=== PATIENT | female | born 1945 | race Caucasian/White ===

== ENCOUNTER 2016-10-21 12:40 | Emergency (ER) | payer MEDICARE, OTHER ==
[~2016-10-21] VITALS: Ht 162.6 cm; Wt 100.3 kg
[~2016-10-21 12:40] MED LIST: /ESOM40CA; /ESOM40CA PO; /IPRAINH INH; /WARF25TA OR; /WARF25TA PO; /WARF3TA OR; /WARF5TA PO; ALLE25CA OR; ASPI81TA3; ASTELIN INH; BENTYL PO; CALCCHW12 PO; CIPR25SS OR; CITRACAL PO; CLON1TAB OR; COMPAZINE OR; CORT10TA; CORT5TAB2; DARV100T; DARV100T PO; EPINEPHRINE SUBQ; FLAG500T OR; FLEXERIL OR; FLEXERIL PO; GLYB2.5T6 PO; HYDR25TA6; HYDR4TAB OR; HYDROCORTISONE; HYDRPOW14 PO; LACTASE OR; LEVO100T7; LEVO75TA2 PO; LIPI20TA OR; LISI5TAB; LOPR50TA; MAALSUS OR; MAXALT; METO25TA2 OR; MIDODRINE PO; MILKSUS; MS C30TA2 OR; PERC5TAB8 OR; PERC7.5T8 OR; PHEN 25 PO; PREG50CA; PROLIA IV; RANI300T OR; RESTASIS OU; ROSU10TA; ROSU10TA PO; SENO8.6T5 OR; TOPI50TA PO; ULTRTA PO; VERA120T; VICO5TAB PO; VITAMIN B 12 PO; VITAMIN D PO; WELCHOL PO; XANA0.5T PO; XANA1TAB2
[2016-10-21] MEDS ORDERED: WARF-23 PO (13:17)
[2016-10-21] MEDS ORDERED: DULO30CA PO (13:17)
[2016-10-21] MEDS ORDERED: CARV12.5 PO (13:17)
[2016-10-21] MEDS ORDERED: GABA-282 PO (13:17)
[2016-10-21] MEDS ORDERED: Atarax PO (13:17)
[2016-10-21] MEDS ORDERED: BACT2CRE TOP (13:17)
[2016-10-21] MEDS ORDERED: HYDR-3716 PO (13:17)
[2016-10-21] MEDS ORDERED: FLUT11IN INH (13:17)
[2016-10-21] MEDS ORDERED: SERO1TAB PO (13:21)
[2016-10-21] MEDS ORDERED: MIRA3350 PO (13:27)
[2016-10-21] MEDS ORDERED: GAVISUS PO (13:27)
[2016-10-21] MEDS ORDERED: ZOFR8TAB SL (13:27)
[2016-10-21] MEDS ORDERED: NS 1,000 ML IV SCH (14:20)
[2016-10-21] MEDS ORDERED: ONDANSETRON 4MG/2ML VIAL (J2405) IV ONE (14:30)
--- NOTE | 2016-10-21 15:11 | REP ---
Clinical: Abdominal pain. Technique: Upright view of the chest with supine and upright views of the abdomen and pelvis. Findings: Frontal view of the chest cannot exclude trace basilar atelectasis. No free air below the diaphragm to suspect pneumoperitoneum. Supine and upright views of the abdomen and pelvis demonstrate nonspecific bowel gas pattern. IVC filter and evidence for prior cholecystectomy as well as bowel surgery in the pelvis noted. Skeletal structures normal for age. Impression: Cannot exclude trace basilar atelectasis. Nonspecific bowel gas pattern. Signed by Sohail Puente MD 10/21/2016 03:02 P
[2016-10-21] MEDS ORDERED: KETOROLAC 30 MG/ML VIAL (J1885) IV ONE (16:15)
[2016-10-21 17:11] LABS: BASO % 0.9 % (0.0-1.0); EOS # 0.2 K/mm3 (0.0-0.50); EOS % 3.7 % (0.0-3.0); LARGE UNSTAINED CELL # 0.2 K/mm3 (0.0-0.4); LARGE UNSTAINED CELL % 2.7 % (0.0-4.0); LYMPH # 2.1 K/mm3 (1.5-4.5); LYMPH % 35.6 % (24.0-44.0); MEAN CORPUSCULAR HGB CONC 32.4 g/dl (32.0-36.5); MEAN CORPUSCULAR VOLUME 92.6 fl (80.0-96.0); MONO # 0.4 K/mm3 (0.0-0.8); MONO % 6.8 % (0.0-5.0); NEUTROPHILS % 50.3 % (36.0-66.0); PLATELET COUNT, AUTOMATED 227 k/mm3 (150-450); RED CELL DISTRIBUTION WIDTH 12.9 % (11.5-14.5); WHITE BLOOD COUNT 5.9 K/mm3 (4.0-10.0)
[2016-10-21 17:17] LABS: ALBUMIN 3.5 GM/DL (3.2-5.2); ALBUMIN/GLOBULIN RATIO 1.06 (1.00-1.93); ALKALINE PHOSPHATASE 137 U/L (45-117); ALT/SGPT 30 U/L (12-78); ANION GAP 11 MEQ/L (8-16); AST/SGOT 21 U/L (15-37); BILIRUBIN,DIRECT < 0.1 MG/DL (0.0-0.2); BILIRUBIN,TOTAL 0.4 MG/DL (0.2-1.0); BLOOD UREA NITROGEN 19 MG/DL (7-18); CARBON DIOXIDE LEVEL 27 MEQ/L (21-32); CHLORIDE LEVEL 103 MEQ/L (98-107); GLOMERULAR FILTRATION RATE > 60.0 (>39); GLUCOSE, FASTING 159 MG/DL (83-110); POTASSIUM SERUM 4.1 MEQ/L (3.5-5.1); SODIUM LEVEL 141 MEQ/L (136-145); TOTAL PROTEIN 6.8 GM/DL (6.4-8.2)
[2016-10-21] MEDS ORDERED: MACR100C43 PO (17:20)
[2016-10-21] MEDS ORDERED: MAGNESIUM CITRATE 300 ML BTL PO ONE (17:30)
[2016-10-21 17:32] VITALS: BP 137/66
[2016-10-22] MEDS ORDERED: SODIUM CHLORIDE 0.9% INJ 10 ML SYR IV SCH ×2 (09:00)
== END 2016-10-21 18:06 | disposition home or self-care (01) ==
LOC: M ED 12:40
DX: N39.0 Urinary tract infection, site not specified (principal); K59.00 Constipation, unspecified; I11.9 Hypertensive heart disease without heart failure; E11.9 Type 2 diabetes mellitus without complications; E07.9 Disorder of thyroid, unspecified; Z79.899 Other long term (current) drug therapy; Z79.01 Long term (current) use of anticoagulants; Z79.51 Long term (current) use of inhaled steroids; Z91.041 Radiographic dye allergy status; Z88.8 Allergy status to other drugs, medicaments and biological substances; Z88.5 Allergy status to narcotic agent; Z88.7 Allergy status to serum and vaccine; Z91.040 Latex allergy status; Z91.048 Other nonmedicinal substance allergy status; Z88.2 Allergy status to sulfonamides; Z88.1 Allergy status to other antibiotic agents
CPT/HCPCS: 36415; 74022; 80048; 80076; 81001; 83690; 85025; 87088; 87186; 96361; 96374; 96375; 99283; J1885; J2405

== ENCOUNTER 2016-11-30 15:56 | Emergency (ER) | payer MEDICARE, OTHER ==
[~2016-11-30] VITALS: Ht 162.6 cm; Wt 100.0 kg
[~2016-11-30 15:56] MED LIST changes: +Atarax PO; +BACT2CRE TOP; +CARV12.5 PO; +DULO30CA PO; +FLUT11IN INH; +GABA-282 PO; +GAVISUS PO; +HYDR-3716 PO; +MACR100C43 PO; +MIRA3350 PO; +SERO1TAB PO; +WARF-23 PO; +ZOFR8TAB SL
[2016-11-30 15:57] VITALS: BP 122/62
[2016-11-30] MEDS ORDERED: SODIUM CHLORIDE 0.9% INJ 10 ML SYR IV ONE (17:45)
== END 2016-11-30 18:20 | disposition home or self-care (01) ==
LOC: M ED 15:56
DX: Z45.2 Encounter for adjustment and management of vascular access device (principal); T82.9XXA Unspecified complication of cardiac and vascular prosthetic device, implant and graft, initial encounter; Y92.9 Unspecified place or not applicable; Y93.9 Activity, unspecified; I25.10 Atherosclerotic heart disease of native coronary artery without angina pectoris; E11.9 Type 2 diabetes mellitus without complications; J45.909 Unspecified asthma, uncomplicated; Z86.718 Personal history of other venous thrombosis and embolism; K58.9 Irritable bowel syndrome, unspecified; F41.9 Anxiety disorder, unspecified; F32.9 Major depressive disorder, single episode, unspecified; Z90.49 Acquired absence of other specified parts of digestive tract; Z79.899 Other long term (current) drug therapy; Z79.01 Long term (current) use of anticoagulants; Z88.8 Allergy status to other drugs, medicaments and biological substances; Z88.2 Allergy status to sulfonamides; Z88.1 Allergy status to other antibiotic agents; Z91.041 Radiographic dye allergy status; Z91.040 Latex allergy status; Z88.6 Allergy status to analgesic agent; Z88.5 Allergy status to narcotic agent; Z88.7 Allergy status to serum and vaccine

== ENCOUNTER 2016-12-14 09:48 | Emergency (ER) | payer MEDICARE, OTHER ==
[~2016-12-14] VITALS: Ht 162.6 cm; Wt 100.0 kg
[2016-12-14] MEDS ORDERED: NORCO, ANEXSIA 5/325MG TABLET (HYDROcodone/ACETAMINOPHEN) PO ONE (12:00)
[2016-12-14] MEDS ORDERED: MACR100C43 PO (12:26)
[2016-12-14 12:41] VITALS: BP 133/64
== END 2016-12-14 12:42 | disposition home or self-care (01) ==
LOC: M ED 09:48
DX: N39.0 Urinary tract infection, site not specified (principal); E11.9 Type 2 diabetes mellitus without complications; K58.9 Irritable bowel syndrome, unspecified; J45.909 Unspecified asthma, uncomplicated; F41.9 Anxiety disorder, unspecified; E03.9 Hypothyroidism, unspecified; Z86.718 Personal history of other venous thrombosis and embolism; Z79.899 Other long term (current) drug therapy; Z88.8 Allergy status to other drugs, medicaments and biological substances; Z88.6 Allergy status to analgesic agent; Z88.5 Allergy status to narcotic agent; Z91.041 Radiographic dye allergy status; Z91.040 Latex allergy status; Z88.2 Allergy status to sulfonamides; Z88.1 Allergy status to other antibiotic agents